=== PATIENT | female | born 1970 | race Caucasian/White ===

== ENCOUNTER 2021-09-29 09:32 | Outpatient (CLI) | payer OTHER ==
[~2021-09-29] VITALS: Ht 162 cm; Wt 59.0 kg
[2021-09-29 09:43] VITALS: BP 138/74
[2021-09-29] MEDS ORDERED: diphenhydrAMINE 50 MG/ML INJ (BENADRYL) IV PRN (10:15)
[2021-09-29] MEDS ORDERED: EPINEPHrine INJECTION 1 MG/ML AMP IM PRN (10:15)
[2021-09-29] MEDS ORDERED: BAMLANIVIMAB 700 MG/ETESEVIMAB 1,400 MG IN NS IV ONE ×3 (10:15)
[2021-09-29] MEDS ORDERED: ONDANSETRON 4 MG/2 ML (SDV) Z0FRAN IV PRN (10:15)
[2021-09-29] MEDS ORDERED: ACETAMINOPHEN 500 MG TAB (TYLENOL) PO PRN (10:15)
== END 2021-09-29 11:51 | disposition home or self-care (01) ==
LOC: INFUSION 09:32
PROVIDERS: ATTEND Family Medicine
DX: U07.1 COVID-19 (principal)